=== PATIENT | female | born 2000 | race Hispanic/Latino ===

== ENCOUNTER 2020-07-13 07:56 | Emergency (ER) | payer OTHER ==
[~2020-07-13] VITALS: Ht 152.4 cm; Wt 74.1 kg
[2020-07-13 08:55] LABS: BASO % 0.4 % (0.0-1.0); EOS # 0.1 10^3/uL (0.0-0.5); HEMATOCRIT 41.8 % (36.0-47.0); HEMOGLOBIN 13.8 g/dl (12.0-15.5); LYMPH # 1.9 10^3/uL (1.5-5.0); MEAN CORPUSCULAR HEMOGLOBIN 28.8 pg (27.0-33.0); MEAN CORPUSCULAR VOLUME 87.1 fl (80.0-96.0); MONO # 0.5 10^3/uL (0.0-0.8); MONO % 5.7 % (2.0-8.0); NEUTROPHILS # 5.6 10^3/uL (1.5-8.5); NEUTROPHILS % 69.3 % (36.0-66.0); WHITE BLOOD COUNT 8.1 10^3/uL (4.0-10.0)
[2020-07-13 09:26] LABS: PLATELET COUNT, AUTOMATED 1020 10^3/uL (150-450)
--- NOTE | 2020-07-13 09:39 | REP ---
INDICATION: vaginal bleeding, approx 4 weeks COMPARISON: None. TECHNIQUE: Transabdominal and transvaginal 1st trimester obstetrical ultrasound using color Doppler evaluation. FINDINGS: Anteverted uterus measures 7.4 x 3.2 x 4.5 cm. The endometrial complex measures 5.7 mm thickness. There is no evidence for decidual reaction or intrauterine . Bilateral maternal ovaries are normal in appearance and vascularity. Right ovary measures 3.2 x 1.9 x 2.0 cm (RI 0.64). Left ovary measures 2.2 x 1.2 x 1.7 cm (RI 0.50). No pelvic fluid or adnexal mass. IMPRESSION: 1. No evidence for intrauterine . 2. Correlation with serial HCG levels and repeat ultrasound are recommended. Differential diagnosis includes but is not limited to early , spontaneous , and less likely ectopic . <Electronically signed by Aries Beltran > 07/13/20 [id number]
[2020-07-13 10:40] VITALS: BP 134/87
== END 2020-07-13 10:41 | disposition home or self-care (01) ==
LOC: M ED 07:56
DX: O20.0 Threatened abortion (principal)

== ENCOUNTER → 2020-07-15 | Outpatient (CLI) | payer OTHER | LOC: M LAB 10:44 | PROVIDERS: ATTEND Physician Assistant Medical | DX: O20.0 Threatened abortion (principal) ==

== ENCOUNTER → 2020-12-20 | Outpatient (CLI) | payer OTHER ==
[2020-12-20 17:39] LABS: COLLAGEN EPINEPHRINE 209 SECONDS (74-162)
[2020-12-20 18:37] LABS: COLLAGEN ADP 165 SECONDS (56-103)
== END ==
LOC: M LAB 14:23
PROVIDERS: ATTEND Advanced Practice Midwife
DX: D75.9 Disease of blood and blood-forming organs, unspecified (principal)

== ENCOUNTER 2021-02-10 06:22 | Emergency (ER) | payer OTHER ==
[~2021-02-10] VITALS: Ht 152.4 cm; Wt 75.9 kg
[2021-02-10 07:46] LABS: BASO % 0.3 % (0.0-1.0); EOS # 0.1 10^3/uL (0.0-0.5); EOS % 0.7 % (0.0-3.0); HEMATOCRIT 36.5 % (36.0-47.0); HEMOGLOBIN 12.6 g/dl (12.0-15.5); LYMPH # 1.8 10^3/uL (1.5-5.0); LYMPH % 14.9 % (24.0-44.0); MEAN CORPUSCULAR HEMOGLOBIN 29.8 pg (27.0-33.0); MEAN CORPUSCULAR HGB CONC 34.5 g/dl (32.0-36.5); MEAN CORPUSCULAR VOLUME 86.3 fl (80.0-96.0); MONO # 0.4 10^3/uL (0.0-0.8); MONO % 3.6 % (2.0-8.0); NEUTROPHILS # 9.5 10^3/uL (1.5-8.5); NEUTROPHILS % 79.7 % (36.0-66.0); PLATELET COUNT, AUTOMATED 663 10^3/uL (150-450); RED BLOOD COUNT 4.23 10^6/uL (4.00-5.40); WHITE BLOOD COUNT 11.9 10^3/uL (4.0-10.0)
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
[2021-02-10 08:15] LABS: ALBUMIN 3.3 GM/DL (3.2-5.2); ALT/SGPT 20 U/L (12-78); BILIRUBIN,DIRECT < 0.1 MG/DL (0.0-0.2); BILIRUBIN,TOTAL 0.3 MG/DL (0.2-1.0); BLOOD UREA NITROGEN 6 MG/DL (7-18); CALCIUM LEVEL 9.2 MG/DL (8.5-10.1); CARBON DIOXIDE LEVEL 23 MEQ/L (21-32); CHLORIDE LEVEL 107 MEQ/L (98-107); CREATININE FOR GFR 0.39 MG/DL (0.55-1.30); GLOMERULAR FILTRATION RATE > 60.0 (>60); GLUCOSE, FASTING 88 MG/DL (70-100); LIPASE 96 U/L (73-393); POTASSIUM SERUM 4.3 MEQ/L (3.5-5.1); SODIUM LEVEL 136 MEQ/L (136-145); TOTAL PROTEIN 7.2 GM/DL (6.4-8.2)
[2021-02-10 08:57] VITALS: BP 132/71
== END 2021-02-10 08:59 | disposition home or self-care (01) ==
LOC: M ED 06:22
DX: Z04.1 Encounter for examination and observation following transport accident (principal); Z3A.19 19 weeks gestation of pregnancy